=== PATIENT | female | born 2000 | race Caucasian/White ===

== ENCOUNTER 2025-05-03 12:03 | Emergency (ER) | payer BC, MEDICAID ==
[~2025-05-03] VITALS: Ht 160 cm; Wt 100.0 kg
[2025-05-03 12:16] VITALS: O2SAT 100
[2025-05-03] MEDS: ACETAMINOPHEN 325MG TABLET PO ONE (13:55)
[2025-05-03 15:15] VITALS: BP 124/60; PULSE 72; RESP 17; TEMP 36.7; O2SAT 100
[2025-05-03] MEDS ORDERED: OFLO5DRO4 RIGHT EAR (16:02)
== END 2025-05-03 16:10 | disposition home or self-care (01) ==
LOC: ER 12:03
DX: H60.91 Unspecified otitis externa, right ear (principal)
CPT/HCPCS: 70140; 81025; 99283

== ENCOUNTER 2025-06-09 12:35 | Emergency (ER) | payer BC, MEDICAID ==
[~2025-06-09] VITALS: Ht 160 cm; Wt 58.9 kg
[~2025-06-09 12:35] MED LIST: OFLO5DRO4 RIGHT EAR
[2025-06-09 12:40] VITALS: TEMP 36.6; O2SAT 97
[2025-06-09] MEDS: BACITRACIN ZINC OINT UDPKT TOP ONE (14:45)
[2025-06-09] MEDS: LIDOCAINE HCL/EPINEPHRINE 1%-EPI 1:100,000 20ML VIAL INFIL ONE (14:45)
[2025-06-09] MEDS: TETANUS, DIPHTHERIA, PERTUSSIS VAC/PF 0.5ML (>10YR OLD) IM ONE (15:16)
[2025-06-09] MEDS: BACITRACIN ZINC OINT UDPKT TOP STA (16:36)
[2025-06-09 16:41] VITALS: BP 132/81; PULSE 83; RESP 16; O2SAT 100
== END 2025-06-09 16:43 | disposition home or self-care (01) ==
LOC: ER 12:35
DX: S71.111A Laceration without foreign body, right thigh, initial encounter (principal); Z79.899 Other long term (current) drug therapy; X58.XXXA Exposure to other specified factors, initial encounter; Y93.89 Activity, other specified; Y92.89 Other specified places as the place of occurrence of the external cause; Y99.8 Other external cause status
CPT/HCPCS: 73552; 90715; 12001; 90471; 99283; J2004; Z7610 ×2